=== PATIENT | female | born 1995 | race Hispanic/Latino ===

== ENCOUNTER 2023-07-07 09:39 | Emergency (ER) | payer SELFPAY ==
[2023-07-07] MEDS ORDERED: Tetracaine 0.5% PF 4 ML BOT ONE (10:00)
== END 2023-07-07 10:30 | disposition home or self-care (01) ==
LOC: BURERS 09:39
DX: T15.12XA Foreign body in conjunctival sac, left eye, initial encounter (principal)
CPT/HCPCS: 99283